=== PATIENT | female | born 1980 ===

== ENCOUNTER 2022-10-12 08:50 | Day surgery (SDC) | payer OTHER | END 2022-10-12 21:55 | disposition home or self-care (01) | LOC: CIR.AMB 08:50 | PROVIDERS: ATTEND Colon & Rectal Surgery | DX: K64.2 Third degree hemorrhoids (principal); K64.4 Residual hemorrhoidal skin tags; K64.8 Other hemorrhoids; Z20.822 Contact with and (suspected) exposure to COVID-19 ==